=== PATIENT | female | born 1995 | race American Indian/Alaskan Native ===

== ENCOUNTER 2022-03-31 15:25 | Inpatient (IN) | payer OTHER ==
[2022-03-31] MEDS ORDERED: MINERAL OIL 30 ML ORAL LIQD PO PRN (15:30)
[2022-03-31] MEDS ORDERED: BUTORPHANOL 2 MG/1 ML INJ IV PRN (15:30)
[2022-03-31] MEDS ORDERED: OXYTOCIN 10 UNIT/1 ML INJ IM PRN (15:30)
[2022-03-31] MEDS ORDERED: AMPICILLIN/NS 2 GM/100 ML 2 GM/100 ML BAG IV ONE (15:30)
[2022-03-31] MEDS ORDERED: NALOXONE 0.4 MG/1 ML INJ IV PRN (15:30)
[2022-03-31] MEDS ORDERED: LIDOCAINE (2%) 20 MG/1 ML VIAL 20 ML MDV INFILTRATI ONE (15:30)
[2022-03-31] MEDS ORDERED: ePHEDrine SULFATE 50 MG/1 ML INJ IV PRN (15:30)
[2022-03-31] MEDS ORDERED: CARBOPROST TROMETHAMINE 250 MCG/1 ML INJ IM PRN (15:30)
[2022-03-31] MEDS ORDERED: miSOPROStol 200 MCG TAB PR PRN (15:30)
[2022-03-31] MEDS ORDERED: TERBUTALINE 1 MG/1 ML INJ SUB-Q PRN (15:30)
[2022-03-31] MEDS ORDERED: LACTATED RINGERS 1,000 ML IV SCH (15:30)
[2022-03-31] MEDS ORDERED: LOPERAMIDE 2 MG CAP PO PRN (15:30)
[2022-03-31] MEDS ORDERED: METHYLERGONOVINE MALEATE 0.2 MG/ML VIAL IM PRN (15:30)
--- NOTE | 2022-03-31 15:45 | History and Physical Report ---
History of Present Illness Date of examination: 03/31/22 Date of admission: 03/31/2022 Chief complaint: Presents from office visit in labor History of present illness: Early entry to care; course complicated by +Trichomonas (treated with Negative SCOOTER); and Vitamin D Deficiency (PO Vit. D). Past History Past Medical History: no pertinent history Past Surgical History: no surgical history [employer] History: trichomonas Social history: single, smoking (Former smoker: tobacco and THC) - Obstetrical History Expected Date of Delivery: 05/08/22 Actual Gestation: 34 Week(s) 4 Day(s) : 4 Para: 3 Hx # Term Pregnancies: 3 Number of Living Children: 3 #1 year: 2,011 Birthweight: 2.268 kg Method of Delivery: Vaginal Gestational age at delivery: 38 Complications: none #2 Gender: Male year: 2,016 Birthweight: 2.948 kg Method of Delivery: Vaginal Gestational age at delivery: 37 Complications: none #3 Infant Gender: Female year: 2,021 Birthweight: 2.665 kg Method of Delivery: Vaginal Gestational age at delivery: 37 Complications: none Medications and Allergies Allergies Allergy/AdvReac Type Severity Reaction Status Date / Time No Known Allergies Allergy Verified 09/25/15 08:17 Home Medications Medication Instructions Recorded Confirmed Last Taken Type Tablet 1 tab PO DAILY 09/25/15 09/25/15 Unknown History Active Meds: Active Medications Butorphanol Tartrate (Butorphanol 2 Mg/1 Ml Inj) 2 mg IV Q2H PRN PRN Reason: Pain , Severe (7-10) Carboprost Tromethamine (Carboprost Tromethamine 250 Mcg/1 Ml Inj) 250 mcg IM ONCE PRN PRN Reason: Uterine Bleeding Ephedrine Sulfate (Ephedrine Sulfate 50 Mg/1 Ml Inj) 10 mg IV Q2M PRN PRN Reason: Hypotension Lactated Ringer's (Lactated Ringers) 1,000 mls @ 125 mls/hr IV DIRECT MOLLY Oxytocin/Sodium Chloride (Pitocin/Ns 30 Unit/500ml) 30 units in 500 mls @ 40 mls/hr IV TITR MOLLY; Protocol Ampicillin Sodium (Ampicillin/Ns 2 Gm/100 Ml) 2 gm in 100 mls @ 100 mls/hr IV ONCE ONE; Protocol Stop: 03/31/22 16:29 Ampicillin Sodium (Ampicillin/Ns 1 Gm/50 Ml) 1 gm in 50 mls @ 100 mls/hr IV Q4H MOLLY; Protocol Lidocaine (Lidocaine (2%) 20 Mg/1 Ml Vial 20 Ml Mdv) 20 ml INFILTRATI ONCE ONE Stop: 03/31/22 15:31 Loperamide HCl (Loperamide 2 Mg Cap) 2 mg PO ONCE PRN PRN Reason: give with Hemabate Methylergonovine Maleate (Methylergonovine Maleate 0.2 Mg/Ml Vial) 0.2 mg IM ONCE PRN PRN Reason: Uterine Bleeding Mineral Oil (Mineral Oil 30 Ml Oral Liqd) 30 ml PO QHS PRN PRN Reason: Constipation Misoprostol (Misoprostol 200 Mcg Tab) 800 mcg IN ONCE PRN PRN Reason: Uterine Bleeding Naloxone HCl (Naloxone 0.4 Mg/1 Ml Inj) 0.1 mg IV Q2MIN PRN PRN Reason: Res Rate </= 8 or 02 SAT < 92% Oxytocin (Oxytocin 10 Unit/1 Ml Inj) 10 unit IM ONCE PRN PRN Reason: Uterine Bleeding Terbutaline Sulfate (Terbutaline 1 Mg/1 Ml Inj) 0.25 mg SUB-Q ONCE PRN PRN Reason: Hyperstimulation/Hypertonicity Review of Systems All systems: negative - Physical Exam Breasts: Positive: normal Cardiovascular: Regular rate Lungs: Positive: Clear to auscultation, Normal air movement Abdomen: Positive: normal appearance, soft, normal bowel sounds Genitourinary (Female): Positive: normal external genitalia, normal perenium Vagina: Positive: normal moisture Uterus: Positive: enlarged Anus/Rectum: Positive: normal perianal skin Extremities: Positive: normal - Obstetrical FHR: category 1 Uterine Contraction Monitor Mode: External Cervical Dilatation: 7.5 (Vtx; Intact) Cervical Effacement Percentage: 80 station: -3 Uterine Contraction Frequency (min): 2.5 Uterine Contraction Pattern: Regular Uterine Tone Measurement Phase: Resting Uterine Contraction Intensity: Moderate Results All other labs normal. Assessment and Plan A: IUP @ 34 4/7 Weeks Category I Tracing Active Labor GBS Unknown P: Admit to L&D Per Routine Orders GBS Prophylaxis Consulted Dr. Keller: Agrees with Plan of Care
[2022-03-31] MEDS ORDERED: OXYTOCIN DRIP 30 UNITS/500 ML BAG IV SCH (16:00)
[2022-03-31] MEDS ORDERED: LANOLIN/ZINC/DIMETHICONE (LANSINOH) 7 GM TP PRN (16:36)
[2022-03-31] MEDS ORDERED: diphenhydrAMINE 25 MG CAP PO PRN (16:36)
[2022-03-31] MEDS ORDERED: WITCH HAZEL/ GLYCERIN PAD TP PRN (16:36)
[2022-03-31] MEDS ORDERED: HYDROcodone/ACETAMINOPHEN 5-325 MG TAB PO PRN (16:36)
--- NOTE | 2022-03-31 16:43 | Procedure Note ---
OB Delivery Note - Delivery Date of Delivery: 03/31/22 (1621) Surgeon: ERICA DIAZ Estimated blood loss: 200cc - Vaginal Delivery presentation: vertex Delivery position: OA Intrapartum events: labor-<37 weeks Delivery induction: none Delivery augmentation: rupture of membranes (@1621; large amount of clear fluid) Delivery monitor: external FHT, external uterine Delivery placenta: spontaneous Delivery cord: 3 umbilical vessels Episiotomy: none Delivery laceration: none Anesthesia: none Delivery comments: of a live 4'10 male infant over a intact perineum without pain control with Apgars of 8 and 9 at 1621 on 03/31/2022. Spontaneous cry upon delivery; handed directly to awaiting NICU/RESP team. Spontaneous delivery of placenta complete and intact with Mccullough side presenting at 1625. Fundus is firm and midline located 4 below the U. Lochia is scant. Placenta to pathology due to delivery. - Infant A at 1 minute: 8 at 5 minutes: 9 Infant Gender: Male (4'10)
[2022-03-31 16:59] LABS: Hematocrit 33.5 % (30.3-42.9); Mean Corpuscular HGB Conc 33 % (30-34); Mean Corpuscular Volume 80 fl (79-97); Red Blood Count 4.21 M/mm3 (3.65-5.03)
[2022-03-31 17:37] LABS: Platelet Count 112 K/mm3 (140-440)
[2022-03-31] MEDS ORDERED: AMPICILLIN/NS 1 GM/50 ML 1 GM/50 ML BAG IV SCH (20:00)
[2022-03-31] MEDS: IBUPROFEN 800 MG TAB PO SCH (22:26)
[2022-04-01 04:12] LABS: Hematocrit 28.9 % (30.3-42.9); Hemoglobin 9.7 gm/dl (10.1-14.3)
[2022-04-01] MEDS: IBUPROFEN 800 MG TAB PO SCH ×3 (05:20→18:33)
[2022-04-01] MEDS: PRENATAL VIT27-FE FUMARATE-FOLIC ACID VIT TAB PO SCH (11:02)
--- NOTE | 2022-04-01 18:47 | Discharge Summary ---
Providers - Providers Date of Admission: 03/31/22 15:26 Date of discharge: 04/01/22 Attending physician: SONAL SINCLAIR Primary care physician: SONAL SINCLAIR Hospitalization Reason for admission: labor Delivery: Episiotomy: none Laceration: none Other procedures: none complications: none Discharge diagnosis: delivery baby: male Condition at discharge: Good Disposition: 01 HOME / SELF CARE / HOMELESS Plan - Discharge Medications Prescriptions: Ibuprofen [Motrin 800 MG tab] 800 mg PO Q8HR #30 tablet - Provider Discharge Summary Activity: no sex for 6 weeks, no heavy lifting 4 weeks, no strenuous exercise Diet: routine Instructions: routine Additional instructions: [] Smoking cessation referral if applicable(refer to patient education folder for contact #) [] Refer to [facility] Booklet Call your doctor immediately for: * Fever > 100.5 * Heavy vaginal bleeding ( >1 pad per hour) * Severe persistent headache * Shortness of breath * Reddened, hot, painful area to leg or breast * Drainage or odor from incision. * Keep incision clean and dry at all times and follow doctor's instructions regarding bathing/showering - Follow up plan Follow up: SONAL SINCLAIR MD [Primary Care Provider] - 6 Weeks
[2022-04-02] MEDS: IBUPROFEN 800 MG TAB PO SCH ×3 (01:12→14:11)
[2022-04-02] MEDS: PRENATAL VIT27-FE FUMARATE-FOLIC ACID VIT TAB PO SCH (10:01)
[2022-04-02 16:42] VITALS: BP 130/88
== END 2022-04-02 15:20 | disposition home or self-care (01) | DRG 775 ==
LOC: TRG 15:25 → LD 15:26 → TRG 16:41 → OB 17:52
PROVIDERS: ADMIT Obstetrics & Gynecology; ATTEND Obstetrics & Gynecology
PROC: 10E0XZZ Delivery of Products of Conception, External Approach (ICD-10-PCS; principal; 2022-03-31)
DX: O60.14X0 Preterm labor third trimester with preterm delivery third trimester, not applicable or unspecified (principal); Z37.0 Single live birth; Z3A.34 34 weeks gestation of pregnancy; Z20.822 Contact with and (suspected) exposure to COVID-19
CPT/HCPCS: 36415; 85014; 85018; 85027; 86850; 86900; 86901; 88307; G0378; U0003